=== PATIENT | female | born 1995 | race African-American/Black ===

== ENCOUNTER 2022-06-21 06:08 | Day surgery (SDC) | payer BC, SELFPAY ==
[2022-06-21 06:31] VITALS: BMI 32.9
[2022-06-21] MEDS ORDERED: hydrALAZINE 20 MG/ML VIAL SLOW IVP PRN (07:16)
[2022-06-21] MEDS ORDERED: Lactated Ringer's 1,000 ML IV SCH (07:30)
[2022-06-21 09:55] LABS: Bilirubin Neg (Negative); Blood, Urine Negative (Negative); Clarity Clear (Clear); Glucose, Urine (Dipstick) Normal (Negative); Ketone, Urine Negative (Negative); Leukocyte Negative (Negative); Nitrite Negative (Negative); Protein, Urine (Dipstick) Negative (Neg-Trace); Urobilinogen Normal mg/dL (Less than 2)
[2022-06-21 10:07] LABS: CAUTI Indications for Culture Pregnancy; RBC/HPF 0-3 HPF (0-3); WBC/HPF 0-3 HPF (0-3)
[2022-06-21 10:08] LABS: Bacteria/HPF 1+ HPF (None Seen)
[2022-06-21 10:09] LABS: Urine Culture Reflex Yes Yes
== END 2022-06-21 12:20 | disposition home health service (06) ==
LOC: CSHLD/OP 06:08
PROVIDERS: ATTEND Obstetrics & Gynecology
DX: O36.8130 Decreased fetal movements, third trimester, not applicable or unspecified (principal); O47.03 False labor before 37 completed weeks of gestation, third trimester; O99.413 Diseases of the circulatory system complicating pregnancy, third trimester; R00.0 Tachycardia, unspecified; O13.3 Gestational [pregnancy-induced] hypertension without significant proteinuria, third trimester; Z3A.30 30 weeks gestation of pregnancy
CPT/HCPCS: 76819; 81001; 87086; 96360; 96361; 99283

== ENCOUNTER 2022-08-10 18:29 | Day surgery (SDC) | payer BC ==
[2022-08-10 19:03] VITALS: BMI 34.7
[2022-08-10] MEDS ORDERED: hydrALAZINE 20 MG/ML VIAL SLOW IVP PRN (19:42)
== END 2022-08-10 21:21 | disposition home or self-care (01) ==
LOC: CSHLD/OP 18:29
PROVIDERS: ATTEND Obstetrics & Gynecology
DX: O26.893 Other specified pregnancy related conditions, third trimester (principal); R10.30 Lower abdominal pain, unspecified; O47.03 False labor before 37 completed weeks of gestation, third trimester; O26.43 Herpes gestationis, third trimester; M54.50 Low back pain, unspecified; O36.8330 Maternal care for abnormalities of the fetal heart rate or rhythm, third trimester, not applicable or unspecified; Z3A.36 36 weeks gestation of pregnancy; Z79.899 Other long term (current) drug therapy

== ENCOUNTER 2022-08-13 16:08 | Day surgery (SDC) | payer BC ==
[2022-08-13 16:34] VITALS: BMI 34.7
[2022-08-13] MEDS ORDERED: hydrALAZINE 20 MG/ML VIAL SLOW IVP PRN (17:06)
[2022-08-13 17:47] LABS: #Eosinphils 0.1 10x3/uL (0.0-0.5); #Monocytes 1.1 10x3/uL (0.0-1.1); #Neutrophils 8.2 10x3/uL (1.5-8.4); %Basophils 0.2 % (0.0-2.0); %Eosinophils 0.4 % (0.0-6.0); %Lymphocytes 21.7 % (18.0-47.0); %Monocytes 9.2 % (0.0-10.0); %Neutrophils 67.9 % (40.0-75.0); Hemoglobin 12.7 g/dL (12.0-15.5); Mean Corpuscular HGB CONC 34.1 g/dL (32.0-36.0); Mean Corpuscular Hemoglobin 29.3 pg (27.0-33.0); Mean Corpuscular Volume 85.9 fl (81.6-98.3); Mean Platelet Volume 11.6 fl (7.4-10.4); Platelet Count 246 10x3/uL (150-450); RBC Distribution Width 13.9 % (11.5-14.5); Red Blood Cell (RBC) Count 4.33 10x6/uL (3.90-5.03); White Blood Cell (WBC) Count 12.1 10x3/uL (3.5-10.5)
[2022-08-13 18:03] LABS: ALT (SGPT) 19 U/L (8-55); AST (SGOT) 30 U/L (5-34); Albumin 3.3 g/dL (3.5-5.0); Alkaline Phosphatase 119 U/L (40-110); Anion Gap 16 mmol/L (10-20); BUN (Urea Nitrogen) 8 mg/dL (7.0-18.7); Bilirubin, Total 0.3 mg/dL (0.2-1.2); Calc. Creatinine Clearance 157 mL/min (70-130); Calcium 9.1 mg/dL (7.8-10.44); Carbon Dioxide 16 mmol/L (22-29); Chloride 108 mmol/L (98-107); Estimated GFR 116; Globulin 3.8 g/dL (2.4-3.5); Glucose 112 mg/dL (70-105); Potassium 3.7 mmol/L (3.5-5.1); Protein, Total 7.1 g/dL (6.0-8.3); Sodium 136 mmol/L (136-145)
[2022-08-13 18:26] LABS: Bilirubin Neg (Negative); Blood, Urine Negative (Negative); Clarity Clear (Clear); Glucose, Urine (Dipstick) 100 mg/dL (Negative); Ketone, Urine Negative (Negative); Leukocyte 25 (Negative); Nitrite Negative (Negative); Protein, Urine (Dipstick) 30 mg/dl (Neg-Trace)
[2022-08-13 19:34] LABS: Bacteria/HPF 3+ HPF (None Seen); CAUTI Indications for Culture Pregnancy; Calcium Oxalate Crystals 2+ HPF (None Seen); Mucous/LPF 3+ LPF (<2+); RBC/HPF 0-3 HPF (0-3)
[2022-08-13 19:35] LABS: Urine Culture Reflex Yes Yes
[2022-08-13 20:01] LABS: Creatinine, Urine 225.87 mg/dL (47-110)
[2022-08-14 00:20] LABS: Uric Acid 3.1 mg/dL (2.6-6.0)
== END 2022-08-13 20:37 | disposition home or self-care (01) ==
LOC: CSHLD/OP 16:08
PROVIDERS: ATTEND Obstetrics & Gynecology
DX: O99.891 Other specified diseases and conditions complicating pregnancy (principal); R03.0 Elevated blood-pressure reading, without diagnosis of hypertension; O23.43 Unspecified infection of urinary tract in pregnancy, third trimester; N39.0 Urinary tract infection, site not specified; Z79.899 Other long term (current) drug therapy; Z3A.37 37 weeks gestation of pregnancy
CPT/HCPCS: 80053; 81001; 82570; 84156; 84550; 85025; 87086; 99282

== ENCOUNTER 2022-08-26 18:53 | Day surgery (SDC) | payer BC ==
[2022-08-26 19:30] VITALS: BMI 34.9
[2022-08-26] MEDS ORDERED: hydrALAZINE 20 MG/ML VIAL SLOW IVP PRN (20:07)
[2022-08-26] MEDS ORDERED: Acetaminophen 325 MG TAB PO SCH (20:15)
[2022-08-26 20:26] LABS: Bilirubin Neg (Negative); Blood, Urine Negative (Negative); Clarity Clear (Clear); Glucose, Urine (Dipstick) Normal (Negative); Ketone, Urine Negative (Negative); Leukocyte Negative (Negative); Nitrite Negative (Negative); Protein, Urine (Dipstick) 15 mg/dl (Neg-Trace); Urobilinogen Normal mg/dL (Less than 2)
[2022-08-26] MEDS ORDERED: Ondansetron ODT 4 MG TAB PO SCH (20:30)
[2022-08-26 20:55] LABS: Bacteria/HPF 1+ HPF (None Seen); CAUTI Indications for Culture Pregnancy; RBC/HPF 0-3 HPF (0-3); WBC/HPF 0-3 HPF (0-3)
[2022-08-26 20:56] LABS: Urine Culture Reflex Yes Yes
== END 2022-08-26 22:45 | disposition home or self-care (01) ==
LOC: CSHLD/OP 18:53
PROVIDERS: ATTEND Obstetrics & Gynecology
DX: O47.1 False labor at or after 37 completed weeks of gestation (principal); O21.2 Late vomiting of pregnancy; O99.891 Other specified diseases and conditions complicating pregnancy; M54.50 Low back pain, unspecified; O26.43 Herpes gestationis, third trimester; O24.113 Pre-existing type 2 diabetes mellitus, in pregnancy, third trimester; O10.913 Unspecified pre-existing hypertension complicating pregnancy, third trimester; O23.43 Unspecified infection of urinary tract in pregnancy, third trimester; N39.0 Urinary tract infection, site not specified; Z3A.39 39 weeks gestation of pregnancy
CPT/HCPCS: 81001; 87086; Q0162

== ENCOUNTER 2022-08-27 08:35 | Inpatient (IN) | payer BC ==
[~2022-08-27 08:35] MED LIST: Bupivacaine 0.25% HCL 30 ML VIAL ONE
[2022-08-27 09:01] VITALS: BMI 34.9
[2022-08-27] MEDS ORDERED: Ondansetron PF 4 MG/2 ML Vial IVP PRN ×2 (09:21→14:27)
[2022-08-27] MEDS ORDERED: hydrALAZINE 20 MG/ML VIAL SLOW IVP PRN ×2 (09:21→14:27)
[2022-08-27] MEDS: Lactated Ringer's 1,000 ML IV SCH ×3 (09:45→15:00)
[2022-08-27] MEDS ORDERED: Promethazine HCl 25 MG/ML VIAL IM PRN ×2 (11:23→14:27)
[2022-08-27 13:29] LABS: Fetal Membranes Rupture No Membranes Rupture (No Rupture)
[2022-08-27] MEDS ORDERED: Ibuprofen 800 MG TAB PO PRN (14:27)
[2022-08-27] MEDS ORDERED: HYDROcodone/Acetaminophen 5/325 mg Tablet PO PRN ×2 (14:27)
[2022-08-27] MEDS ORDERED: Fentanyl 100 MCG/2 ML VIAL SLOW IVP PRN (14:27)
[2022-08-27] MEDS ORDERED: Lidocaine 1% (PF) 30 ML VIAL SC PRN (14:27)
[2022-08-27] MEDS ORDERED: NS w/ Oxytocin 30 units 500 ML IV SCH ×2 (14:30)
[2022-08-27] MEDS ORDERED: Fentanyl 2 mcg/Bup 0.1% Cadd 100 ML ONE (14:45)
[2022-08-27 15:01] LABS: Hemoglobin 13.1 g/dL (12.0-15.5); Mean Corpuscular HGB CONC 34.1 g/dL (32.0-36.0); Mean Corpuscular Volume 87.9 fl (81.6-98.3); Mean Platelet Volume 11.1 fl (7.4-10.4); Platelet Count 229 10x3/uL (150-450); RBC Distribution Width 14.3 % (11.5-14.5); Red Blood Cell (RBC) Count 4.37 10x6/uL (3.90-5.03); White Blood Cell (WBC) Count 19.3 10x3/uL (3.5-10.5)
[2022-08-27 15:39] LABS: HBSAg Index 0.13 S/CO (0-0.99); Hep B Surf Ag - L&D Non-Reactive S/CO (NonReactive)
[2022-08-27 15:40] LABS: Syphilis Antibody Nonreactive (Nonreactive); Syphilis Antibody Index 0.09 S/CO (<1.00 Non-Reactive)
[2022-08-28] MEDS ORDERED: Simethicone Chewable 80 MG TAB PO PRN (01:38)
[2022-08-28] MEDS ORDERED: Bisacodyl 10 MG SUPP PR PRN (01:38)
[2022-08-28] MEDS ORDERED: NS w/ Oxytocin 30 units 500 ML IV SCH (01:38)
[2022-08-28] MEDS ORDERED: HYDROcodone/Acetaminophen 5/325 mg Tablet PO PRN ×2 (01:38)
[2022-08-28] MEDS ORDERED: diphenhydrAMINE 25 MG CAP PO PRN (01:38)
[2022-08-28] MEDS ORDERED: Ondansetron PF 4 MG/2 ML Vial IVP PRN (01:38)
[2022-08-28] MEDS ORDERED: hydrALAZINE 20 MG/ML VIAL SLOW IVP PRN (01:38)
[2022-08-28] MEDS ORDERED: Boostrix 0.5 ML (Tdap) VIAL (>/=7 yrs of age) IM ONE (01:38)
[2022-08-28] MEDS: Lactated Ringer's 1,000 ML IV SCH (01:43)
[2022-08-28] MEDS: Ibuprofen 800 MG TAB PO SCH ×3 (01:59→18:22)
[2022-08-28] MEDS ORDERED: Ibuprofen 800 MG TAB PO SCH (06:00)
[2022-08-28] MEDS: Docusate 100 MG CAP PO SCH ×2 (09:17→21:45)
[2022-08-29] MEDS: Ibuprofen 800 MG TAB PO SCH ×2 (01:36→09:22)
[2022-08-29 08:45] VITALS: BP 122/58; TEMP 98.2
[2022-08-29] MEDS ORDERED: Polyethylene Glycol 3350 17 GM Packet PO SCH (09:00)
[2022-08-29] MEDS: Docusate 100 MG CAP PO SCH (09:22)
== END 2022-08-29 12:25 | disposition home or self-care (01) | DRG 807 ==
LOC: CSHLD/OP 08:35 → CSHLD 14:37 → CSHPP 08-28 01:30
PROVIDERS: ADMIT Obstetrics & Gynecology; ATTEND Obstetrics & Gynecology
PROC: 10E0XZZ Delivery of Products of Conception, External Approach (ICD-10-PCS; principal; 2022-08-27)
PROC: 0HQ9XZZ Repair Perineum Skin, External Approach (ICD-10-PCS; 2022-08-27)
PROC: 10907ZC Drainage of Amniotic Fluid, Therapeutic from Products of Conception, Via Natural or Artificial Opening (ICD-10-PCS; 2022-08-27)
DX: O98.52 Other viral diseases complicating childbirth (principal); Z37.0 Single live birth; Z3A.39 39 weeks gestation of pregnancy; B00.9 Herpesviral infection, unspecified; O70.0 First degree perineal laceration during delivery; Z79.899 Other long term (current) drug therapy
CPT/HCPCS: 36415; 51702; 81001; 84112; 85027; 86780; 86850; 86900; 86901; 87086; 87340; 99284; 99285; J2405; J7120; Q0162; S0020